=== PATIENT | female | born 1960 | race Caucasian/White ===

== ENCOUNTER 2024-09-30 08:32 | Emergency (ER) | payer OTHER, SELFPAY ==
--- NOTE | ~2024-09-30 | XR_ITS ---
XR wrist RT min 3V, XR hand RT min 3V 09/30/2024 09:11 (accession [id number]), 09/30/2024 09:10 (accession [id number]) Indication: Right wrist and hand pain Procedure: 4 views right wrist and 3 views right hand Comparison: No prior studies for comparison. Findings: There is mild polyarticular osteoarthritis. No fracture, subluxation or dislocation. Scapho id intact. No focal soft tissue abnormality. No foreign bodies. Impression: 1: Mild polyarticular osteoarthritis. Reviewed, dictated and finalized at location B. ECT ADMINISTRATOR Impression: 1: Mild polyarticular osteoarthritis. Impression: 1: Mild polyarticular osteoarthritis.
--- NOTE | 2024-09-30 08:40 | ED_ITS ---
HPI - URI/Sore Throat General Chief Complaint: Upper Respiratory Infection Stated Complaint: RT Wrist and hand injury / sore throat Time Seen by Provider: 09/30/24 08:39 Source: patient Mode of arrival: ambulatory Limitations: no limitations History of Present Illness HPI Narrative: Doris is a 63-year-old female patient presenting to the clinic today with complaints of wrist and hand pain after falling 5 days ago in [facility]. She reports she slipped on a rock that had some bunch on it and fell down and hyperextended her right wrist/hand. Is having sharp pain over the radius and it hurts to make a fist. Also reports a sore throat that started yesterday. States that it was so sore yesterday she was having difficulty swallowing and is somewhat improved today. Has recently been on a 6 day course of Augmentin for an insect bite that she received in [facility]. Denies any fever, chills, or URI symptoms. MD elicited complaint: sore throat and nasal congestion Related Data Home Medications Medication Instructions Recorded Confirmed amlodipine 2.5 mg tablet 2.5 mg DIRECTED 09/30/24 09/30/24 cyclobenzaprine 10 mg tablet 10 mg DIRECTED 09/30/24 09/30/24 ergocalciferol (vitamin D2) 1,250 1,250 mcg DIRECTED 09/30/24 09/30/24 mcg (50,000 unit) capsule fremanezumab-vfrm 225 mg/1.5 mL 225 mg subcut DIRECTED 09/30/24 09/30/24 subcutaneous auto-injector (Ajovy) hydroxyzine HCl 10 mg tablet 10 mg DIRECTED 09/30/24 09/30/24 levothyroxine 137 mcg tablet 137 mcg DIRECTED 09/30/24 09/30/24 magnesium oxide 500 mg PO DAILY 09/30/24 09/30/24 mecobalamin (vitamin B12) 500 mcg 500 mcg PO DIRECTED 09/30/24 09/30/24 chewable tablet meloxicam 15 mg tablet 7.5 mg DIRECTED 09/30/24 09/30/24 olmesartan 40 mg tablet 40 mg DIRECTED 09/30/24 09/30/24 ondansetron HCl 4 mg tablet 4 mg DIRECTED 09/30/24 09/30/24 zolpidem 10 mg tablet 10 mg DIRECTED 09/30/24 09/30/24 Allergies Allergy/AdvReac Type Severity Reaction Status Date / Time rivaroxaban [From Xarelto] Allergy Mild Headache Verified 09/30/24 08:51 Review of Systems Review of Systems: Pertinent positives per HPI. Patient denies any fever, chills, rash, headache, visual changes, dizziness, cough, shortness of breath, chest pain, palpitations, nausea, vomiting, diarrhea, constipation, abdominal pain, or any urinary issues. PMFSH Comments At the time of my signature, I reviewed and agree with the nursing past medical, surgical, social, and family history. There is no relevant family history pertinent to the patient complaint. Exam Narrative: General: Well-developed, well nourished, in no apparent distress Head: Normocephalic, atraumatic Eyes: Pupils equally round and reactive to light bilaterally, EOM intact, sclera and conjunctive clear, no discharge, lids normal Ears: TMs intact and clear, ear canals clear, no drainage, grossly hearing normal. Nose: Nares patent, no discharge, no inflammation, no sinus tenderness. Mouth: Oral pharynx with white plaque appearing exudate to the back of the throat as well as on the back of the tongue. No masses, good dentition, MMM. Neck: Supple, trachea midline, no enlargement of anterior or posterior cervical nodes, no thyroid masses or goiter palpable. Cardio: Regular rate and rhythm, s1 and s2 normal, no murmur appreciated. Resp: Clear to auscultation bilaterally, no rhonchi, rales, wheezing or rubs Musculoskeletal: No deformity, tender to palpation over the right radius, sharp pain with closing of the right hand that radiates into the wrist, limited flexion and extension of the right wrist due to pain, muscle strength strong and equal, peripheral pulse strong, no edema, no cyanosis, normal gait and station Course Course Emergency Course: Portions of this record may have been created with voice recognition software. Level of Care: Express Care Visit Vital Signs Vital signs: Vital Signs Temperature 37.2 C 09/30/24 08:53 Pulse Rate 99 09/30/24 08:53 Respiratory Rate 16 09/30/24 08:53 Blood Pressure 142/78 H 09/30/24 08:53 Pulse Oximetry 100 09/30/24 08:53 Oxygen Delivery Room Air 09/30/24 08:53 Temperature 37.2 C 09/30/24 08:55 Pulse Rate 99 09/30/24 08:55 Respiratory Rate 16 09/30/24 08:55 Blood Pressure 142/78 H 09/30/24 08:55 Pulse Oximetry 100 09/30/24 08:55 Oxygen Delivery Room Air 09/30/24 08:55 Vital signs reviewed MDM - URI/Sore Throat MDM Narrative Medical decision making narrative: At the time of visit patient is resting comfortably on the exam table. Patient appears to be nontoxic. Labs: Strep test was negative in the clinic today. We will send strep for culture. Diagnostics: X-ray of the right hand and wrist are negative for any fracture or malalignment does show some mild osteoarthritis. Plan: I suspect patient has a right hand wrist sprain as well as oral thrush. Prescription for nystatin swish and swallow was sent to the pharmacy. Supportive measures were discussed with the patient and they voiced understanding discharge instructions and agrees to treatment plan. Return precautions reviewed Differential Diagnosis Differential diagnosis: Likely upper respiratory infection, otitis media, sinusitis, viral infection, bronchitis, influenza, pharyngitis and other (Wrist sprain, wrist fracture, hand fracture, hand sprain) Lab Data Labs: Lab Results 09/30/24 Range/Units 09:02 POC Grp A Strep Screen Negative (Negative) Discharge Plan Discharge Clinical Impression: Oral thrush Right wrist sprain Qualifiers: Encounter type: initial encounter Qualified Code(s): S63.501A - Unspecified sprain of right wrist, initial encounter Hand sprain Qualifiers: Encounter type: initial encounter Laterality: right Qualified Code(s): S63.91XA - Sprain of unspecified part of right wrist and hand, initial encounter Patient Disposition: Home, Self-Care Condition: Stable Instructions: Antibiotic Form, Oral Candidiasis (ED), Hand Sprain (ED), Wrist Sprain (ED) Additional Instructions: Oral thrush discharge instructions: Strep test was negative in the clinic today. We will send strep for culture. I suspect you have oral pharyngeal thrush-take oral swish/swallow nystatin as prescribed Change your toothbrush Increase fluids and stay well hydrated May do Cepacol spray, cough drops, or throat lozenges for throat irritation Follow-up with your primary care doctor in 3-5 days if symptoms are not imp roving Wrist/hand sprain discharge instructions: X-ray of the right wrist and hand are negative for any sign of fracture or malalignment Rest, ice, elevate, and wear elan wrap/Velcro wrist splint as directed Tylenol/motrin for pain as discussed. Follow up with your PCP if symptoms persist more than 1 week. Prescriptions: New nystatin 100,000 unit/mL suspension 5 ml PO QID 14 Days Qty: 280 0RF Rx Instructions: swish and swallow. Retain in mouth as long as possible. May stop after 48 hours of symptoms resolving. No Action cyclobenzaprine 10 mg tablet 10 mg DIRECTED levothyroxine 137 mcg tablet 137 mcg DIRECTED meloxicam 15 mg tablet 7.5 mg DIRECTED ondansetron HCl 4 mg tablet 4 mg DIRECTED amlodipine 2.5 mg tablet 2.5 mg DIRECTED ergocalciferol (vitamin D2) 1,250 mcg (50,000 unit) capsule 1,250 mcg DIRECTED zolpidem 10 mg tablet 10 mg DIRECTED hydroxyzine HCl 10 mg tablet 10 mg DIRECTED olmesartan 40 mg tablet 40 mg DIRECTED Ajovy Autoinjector 225 mg/1.5 mL auto-injector 225 mg SUBCUT DIRECTED magnesium oxide 500 mg magnesium Tablet 500 mg PO DAILY mecobalamin (vitamin B12) 500 mcg Tablet,Chewable 500 mcg PO DIRECTED Follow-up/Referrals: UNKNOWN,DOCTOR [Non-Staff] - Time of Disposition: 09:28 Quality NIHSS Nursing Documentation ED NIHSS nursing documentation: reviewed/agree
[2024-09-30 08:53] VITALS: BP 142/78; PULSE 99; RESP 16; TEMP 37.2; O2SAT 100
[2024-09-30 08:55] VITALS: BP 142/78; PULSE 99; RESP 16; TEMP 37.2; O2SAT 100
[2024-09-30 09:04] LABS: EDSTREPNEGPOS1 Negative (Negative)
== END 2024-09-30 09:38 | disposition home or self-care (01) ==
PROVIDERS: Emergency Provider Nurse Practitioner Family
DX: B37.0 Candidal stomatitis (principal); S63.501A Unspecified sprain of right wrist, initial encounter; S63.91XA Sprain of unspecified part of right wrist and hand, initial encounter; W01.0XXA Fall on same level from slipping, tripping and stumbling without subsequent striking against object, initial encounter; E03.9 Hypothyroidism, unspecified; Z98.84 Bariatric surgery status
CPT/HCPCS: 73110; 73130; 87081; 87880; 99213; G0463